=== PATIENT | male | born 1980 | race Caucasian/White ===

== ENCOUNTER 2018-04-06 06:39 | Inpatient (IN) ==
--- NOTE | 2018-03-25 10:31 | Anesthesiology Consultation ---
Date of Service March 25, 2018 Assessment & Plan (1) Encounter for pre-operative examination: Chart Review Chart Review: Acceptable Risk for Surgery and Patient seen in Pre Admission Testing Consults Requested none Teaching & Discussion Pre-Anesthesia Teaching/Discussion Notes: Instructed NPO after midnight before surgery, except medications with 15 cc of water. Medication instructions provided according to the PAT guidelines. History Surgery Operation Date: 04/06/18 14:00 Proposed Procedures p Left Total Hip Arthroplasty - Daniel Melendez Height/Weight Height: 5 ft 1 in Weight: 71.7 kg Allergies Allergy/AdvReac Type Severity Reaction Status Date / Time ANTIBIOTIC Allergy Unknown Rash Uncoded 03/18/18 16:20 Medications Home Medications Medication Instructions Recorded Confirmed Last Taken "Immunity Booster" 1 dose PO DAILY 03/18/18 03/18/18 Unknown Loratidine 1 dose PO UD PRN 03/18/18 03/18/18 Unknown Multivitamin With [place] 3 1 dose PO DAILY 03/18/18 03/18/18 Unknown [place]'s wort 1 dose PO QAM 03/18/18 03/18/18 Unknown Turmeric & Curcumin 1 dose PO DAILY 03/18/18 03/18/18 Unknown acetaminophen [Tylenol Arthritis 1 dose PO UD PRN 03/18/18 03/18/18 Unknown Pain] Past Medical History Medical History Acid reflux DIET CONTROLLED Arthritis Family history of [place] (myocardial infarction) 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 Hip dysplasia History of anesthesia reaction TOOK LONGER TO WAKE UP ([facility] 2017/HIATAL HERNIA) History of pneumonia 2-3 YRS AGO/NO PROBLEMS SINCE Past Surgical History Surgical History History of repair of hiatal hernia Past Anesthesia History No Hx of Anesthesia Complications ("slow to wake" (spent an extra hour in PACU) ) and No Family Hx of Anesthesia Complications History of PONV No Motion Sickness Screening History of Motion Sickness: No Social History Smoking Status: Never smoker Do You Dip or Chew Tobacco: No Hx Alcohol Use: No Hx Substance Use: No substance use type: does not use Exercise / Class Metabolic Activity II 4-5 Yardwork/Stairs/Walk up hill (Active, but increasing difficulty walking due to hip pain. Not currently able to climb stairs due to hip pain. Denies CP or SOB. ) Review of Systems Patient denies chest pain, shortness of breath, dyspnea on exertion, reflux ( diet controlled), cough (only when post nasal drip is acting up), wheezing, palpitations. +joint pain (hips, left knee, low back) Physical Exam Vital Signs BP: 122/79 P: 77 R: 18 T: 98.1 SPO2: 96% on RA ENMT Thyromental Distance: > or= 3.5 Finger Breadths (3.5) Mallampati Class: I Neck normal visual inspection and trachea midline; neck extension not limited Respiratory normal respiratory effort Auscultation: lungs clear to auscultation bilaterally Cardiovascular Rate/Rhythm: regular rate and regular rhythm Heart Sounds: no murmur Vessels: no carotid bruit Neurologic moves all extremities Psychiatric Orientation: alert and oriented x 3 Testing Electrocardiogram Date: 03/25/18 Findings: + NSR @ (72) Chest X-Ray Date: 03/25/18 Findings: + NAD Laboratory Results 03/25/18 11:26 03/25/18 11:26 Blood Type A Positive 03/25/18 11:26 Antibody Screen NEGATIVE 03/25/18 11:26 PT 10.5 Seconds (9.0-12.0) 03/25/18 11:26 INR 1.0 (0.9-1.1) 03/25/18 11:26 APTT 27.7 Seconds (21.0-31.0) 03/25/18 11:26 Urine Color Yellow 03/25/18 Unknown Urine Appearance Clear (Clear) 03/25/18 Unknown Urine pH 5.5 (4.5-7.5) 03/25/18 Unknown Ur Specific [place] 1.022 (1.000-1.030) 03/25/18 Unknown Urine Protein Negative (Negative) 03/25/18 Unknown Urine Glucose (UA) Negative (Negative) 03/25/18 Unknown Urine Ketones Negative (Negative) 03/25/18 Unknown Urine Nitrite Negative (Negative) 03/25/18 Unknown Ur Leukocyte Esterase Negative (Negative) 03/25/18 Unknown 03/25/18 Unknown Urine Culture - Final Urine,Clean Catch No growth - less than 1,000 colonies/mL.
--- NOTE | 2018-03-25 10:35 | PAT Medication Instructions ---
Medication Instructions Date of Service March 25, 2018 Home Medications "Immunity Booster" - doTerra supplements 1 dose PO DAILY Loratidine 1 dose PO NEEDED Multivitamin With [place] 3 1 dose PO DAILY Gaudencio's wort 1 dose PO QAM Turmeric & Curcumin 1 dose PO DAILY acetaminophen [Tylenol Arthritis] 1 dose PO NEEDED STOP taking 2 weeks before surgery "Immunity Booster" 1 dose PO DAILY [place]'s wort 1 dose PO QAM Turmeric & Curcumin 1 dose PO DAILY Multivitamin With [place] 3 1 dose PO DAILY DO NOT take the morning of surgery Loratidine 1 dose PO NEEDED Take morning of surgery With a small sip of water, OTHERWISE NOTHING TO EAT OR DRINK AFTER MIDNIGHT: acetaminophen [Tylenol Arthritis] 1 dose PO NEEDED Take evening before surgery acetaminophen [Tylenol Arthritis] 1 dose PO NEEDED Loratidine 1 dose PO NEEDED Other Notes If you have any questions please call us at [phone] or [phone] or [phone] or [phone]
--- NOTE | 2018-03-25 11:57 | XRay Report ---
XR chest Pre-admission PA/Lat CLINICAL HISTORY: pat COMPARISON STUDY: No previous studies for comparison. FINDINGS: The bones soft tissues and hemidiaphragms are normal. The cardiomediastinal silhouette is n ormal. The lungs are clear. The pulmonary vasculature is normal. IMPRESSION: Negative chest. The above report was generated using voice recognition software. It may contain grammatical, syntax or spelling errors. Electronically signed by: Humberto Fernandes M.D. 03/25/2018 11:55 AM
[2018-03-25 12:28] LABS: Basophils # (auto) 0.03 K/uL (0-0.2); Basophils % (auto) 0.4 %; Eosinophils # (auto) 0.08 K/uL (0-0.5); Hemoglobin 16.1 g/dL (14.0-18.0); Immature Granulocytes # (auto) 0.01 K/uL (0.00-0.02); Immature Granulocytes % (auto) 0.1 %; Lymphocytes # (auto) 3.28 K/uL (1.2-3.4); Lymphocytes % (auto) 41.3 %; Mean Corpuscular Hgb Conc 34.3 g/dL (32-36); Mean Corpuscular Volume 91.1 fL (80-100); Mean Platelet Volume 10.7 fL (7.4-10.4); Monocytes # (auto) 0.64 K/uL (0.11-0.59); Monocytes % (auto) 8.1 %; Neutrophils # (auto) 3.91 K/uL (1.4-6.5); Neutrophils % (auto) 49.1 %; Platelet Count 259 K/uL (130-400); RDW Coefficient of Variation 11.9 % (11.5-14.5); RDW Standard Deviation 39.8 fL (36.4-46.3); Red Blood Count 5.16 M/uL (4.7-6.1); White Blood Count 7.95 K/uL (4.8-10.8)
[2018-03-25 12:39] LABS: Appearance Urine Clear (Clear); Bilirubin Urine Negative (Negative); Color Urine Yellow; Glucose Urine UA Negative (Negative); Ketones Urine Negative (Negative); Leukocyte Esterase Urine Negative (Negative); Nitrite Urine Negative (Negative); Protein Urine Negative (Negative); Specific Gravity Urine 1.022 (1.000-1.030); Urobilinogen Urine Negative (Negative); pH Urine 5.5 (4.5-7.5)
[2018-03-25 12:47] LABS: Partial Thromboplastin Ratio 1.1; Partial Thromboplastin Time 27.7 Seconds (21.0-31.0); Prothrombin Time 10.5 Seconds (9.0-12.0)
[2018-03-25 13:29] LABS: Albumin Level 4.3 gm/dl (3.4-5.0); BUN Creatinine Ratio 19.6 (10-20); Calcium 9.4 mg/dl (8.5-10.1); Creatinine Clr Calc Pharmacy 110.5 ml/min; Est GFR (African American) 133.4; Est GFR (Non-African American) 115.1
[2018-03-25 13:32] LABS: Albumin Globulin Ratio 1.2 (0.9-2); Bilirubin,Total 0.4 mg/dl (0.2-1); Globulin 3.6 gm/dl (2.5-4.0); Total Protein 7.9 gm/dl (6.4-8.2)
--- NOTE | 2018-04-05 11:59 | History & Physical Report ---
Date of Service April 05, 2018 Assessment & Plan (1) Degenerative joint disease of left hip: admit and undergo left TAMIKA. History of Present Illness Chief Complaint: left hip pain Primary Care Provider: Sissy Veras pt with severe hip dysplasia and severe hip pain of left and right hips for years. Pt has tried nsaids and PT with no relief. Allergies Allergy/AdvReac Type Severity Reaction Status Date / Time ANTIBIOTIC Allergy Unknown Rash Uncoded 03/18/18 16:20 Home Medications Home Medications Medication Instructions Recorded Confirmed Type "Immunity Booster" 1 dose PO DAILY 03/18/18 03/18/18 History Loratidine 1 dose PO UD PRN 03/18/18 03/18/18 History Multivitamin With [place] 3 1 dose PO DAILY 03/18/18 03/18/18 History G[place]'s wort 1 dose PO QAM 03/18/18 03/18/18 History Turmeric & Curcumin 1 dose PO DAILY 03/18/18 03/18/18 History acetaminophen [Tylenol Arthritis 1 dose PO UD PRN 03/18/18 03/18/18 History Pain] Past Med/Surg History Medical History Acid reflux DIET CONTROLLED Arthritis Hip dysplasia History of pneumonia 2-3 YRS AGO/NO PROBLEMS SINCE Surgical History History of anesthesia reaction TOOK LONGER TO WAKE UP ([facility] 2017/HIATAL HERNIA) History of repair of hiatal hernia Family History Father FH: myocardial infarction Social History Current Living Situation: Significant Other Other Information That Helps Us Care for You: No Feels Safe at Home: Yes Smoking Status: Never smoker Do You Dip or Chew Tobacco: No Hx Alcohol Use: No Hx Substance Use: No Beliefs That Will Affect Care: None Preferred Language: Macanese Communication Ability: Effective Medical Advisor Required: No Review of Systems All systems reviewed & are unremarkable except as noted in HPI & below Physical Exam 2 Constitutional: WD/WN, vitals as above Eyes: PERRL, conjunctivae normal, anicteric sclerae Neck: trachea midline, no thyromegaly Respiratory: normal respiratory effort, lungs clear to auscultation Cardiovascular: RRR, no murmur, no edema Gastrointestinal (Abdomen): normal bowel sounds, soft, nontender, no hepatosplenomegaly Musculoskeletal: Hip: + limited ROM of hip and + hip ROM with crepitation
[~2018-04-06 06:39] MED LIST: ACETAMINOPHEN 500 MG TAB PO SCH; BUPIVACAINE 0.5 % 5 MG/1 ML PF 10ML VIAL ONE; CEFAZOLIN 1000MG 1,000 MG/7.5 ML SYR IV SCH; CeleBREX 200 MG CAP PO SCH; FAMOTIDINE 20 MG TAB PO SCH; LR 60ML/HR IV SCH; METOCLOPRAMIDE HCL 10 MG TABLET PO SCH; ROPIVACAINE 0.5% HCL/PF 150 MG, BUPIVACAINE 0.5% MPF 30 ML, EPINEPHrine 30MG/30ML (OR U... INFIL SCH; TRANEXAMIC ACID 1,000 MG **IV Intra-op IV SCH; TRANEXAMIC ACID 1,000 MG **IV Pre-op IV SCH; [UNRECOGNIZED DRUG - REMARK] SCH; dexAMETHasone 4 MG TAB PO SCH
[2018-04-06] MEDS: LR 500ML BOLUS, THEN 15ML/HR IV SCH ×3 (07:19→12:13)
[2018-04-06] MEDS ORDERED: fentaNYL citrate 100 MCG/2 ML VIAL ONE (08:02)
[2018-04-06] MEDS ORDERED: PROPOFOL IV EMULSION 10 MG/ML 20 ML VIAL IV ONE ×2 (08:02→10:23)
[2018-04-06] MEDS ORDERED: LIDOCAINE HCL 2% 2 ML VIAL/AMP(20MG/ML) INFIL ONE (08:02)
[2018-04-06] MEDS ORDERED: MIDAZOLAM HCL 1 MG/ML 2ML VIAL ONE (08:02)
[2018-04-06] MEDS ORDERED: ATROPINE SULFATE 0.1 MG/ML 10ML SYR IV PRN (08:15)
[2018-04-06] MEDS ORDERED: PROMETHAZINE HCL 6.25 MG in SODIUM CHLORIDE 0.9% 50 ML IV PRN (08:15)
[2018-04-06] MEDS ORDERED: ePHEDrine sulfate 50 MG/ML AMP IV PRN (08:15)
[2018-04-06] MEDS ORDERED: ONDANSETRON INJ 2 MG/ML 2 ML VIAL IV PRN ×2 (08:15→11:48)
[2018-04-06] MEDS ORDERED: fentaNYL citrate 100 MCG/2 ML VIAL IV PRN (08:15)
--- NOTE | 2018-04-06 08:33 | History & Physical Bridge Note ---
Date of Service April 06, 2018 History & Physical Bridge Note I have examined the patient, reviewed the History & Physical and in the interval since the performance of the History & Physical I have noted the following changes of clinical significance: no changes noted
[2018-04-06] MEDS ORDERED: BACITRACIN INJ 50,000 UNIT VIAL ONE (08:52)
[2018-04-06] MEDS ORDERED: POVIDONE-IODINE OP SOLN 30 ML BTL ONE (08:52)
[2018-04-06] MEDS ORDERED: ORTHO JOINT ANESTHETIC ONE (08:52)
--- NOTE | 2018-04-06 10:45 | Post Operative Brief Note ---
Immediate Post Op Note v1 Date of Surgery April 06, 2018 Pre & Post Diagnosis Operation Date: 04/06/18 09:40 Pre-Op Diagnosis: Left Hip Osteoarthritis Post-Op Diagnosis: Left Hip Osteoarthritis Procedure Operation Date: 04/06/18 09:40 Actual Procedures p Left Total Hip Arthroplasty(Left) - Daniel Melendez Surgeon Daniel Melendez Macadam Raker lizzeth lazo Estimated Blood Loss 30 Findings Consistent with Post-Op Diagnosis Drains Hemovac Drain Complications none Disposition Disposition: Recovery Room
--- NOTE | 2018-04-06 10:48 | Operative Report ---
Post Operative Report Pre & Post Diagnosis Operation Date: 04/06/18 09:40 Pre-Op Diagnosis: Left Hip Osteoarthritis Post-Op Diagnosis: Left Hip Osteoarthritis Procedure Operation Date: 04/06/18 09:40 Actual Procedures p Left Total Hip Arthroplasty(Left) - Daniel Melendez Surgeon Daniel Melendez Museum Curator chuckie lazo Estimated Blood Loss 30 Findings Consistent with Post-Op Diagnosis Specimens none Disposition Disposition: Recovery Room Description of Procedure IMPLANTS USED: Lisa size 56 mm Trident 2 Tritanium acetabular cup, one acetabular screw, a #5 Accolade 2 stem with a 127 degrees neck, 36 mm x-ray elevated liner, 36 mm +0 ceramic head INDICATIONS: is a pleasant male who has unfortunately failed all forms of conservative measures. Therefore, they have has decided to undergo elective surgical intervention. All risks and benefits of the surgery were discussed with the patient and the family in entirety. PROCEDURE: The patient was brought to the operating room and properly identified by myself, anesthesia, and staff. Patient was given a spinal anesthetic and placed on the operating table with the left hip up. The hip was then prepped and draped in the standard orthopedic fashion. We made a standard posterolateral approach over the greater trochanteric area. We then dissected down to subcutaneous tissue until the fascia was identified. We incised the fascia in line with the skin incision. We then split the gluteus xochilt muscles with finger dissection. We then put the Charnley retractor in place. We placed the retractor underneath the gluteus medius to expose the piriformis. The piriformis was then tagged with a tag suture and released from the insertion from the greater trochanteric area with the use of electrocautery. We then performed a T capsulotomy and the femoral head and neck were atraumatically dislocated. We then performed femoral neck osteotomy at the pre- template site. We removed the femoral head and neck without difficulty. We then placed the retractor around the acetabulum. We then began to ream the acetabulum to the appropriate size. We then impacted the cup into place and had a very good fixation within the pelvis. We then put the liner in place as well. Then using multiple size approaches from the Accolade 2 system a size #5 fit very nicely in the proximal femur. I then put trial components in place. WE had very good range of motion, excellent stability, and excellent leg length equality. We removed the trial components and irrigated the wound. We then impacted the components in place and irrigated the wound once more. We then closed the capsule and fascia with a 0 Vicryl suture, the deep dermis with 2-0 Vicryl suture, and finally the skin with a running 3-0 Vicryl subcuticular stitch. A sterile dressing was applied. The patient was taken to the recovery room in stable condition. Due to the complex nature of the procedure, the entire surgery was performed with the operational assistance of Chuckie Lazo PA-C. The training assistant was under direct supervision, was involved in the actual performance of all aspects of the surgical procedure including hemostasis, tissue retraction and incision, instrument management, patient positioning, and wound closure. I attest to the content of the Intraoperative Record and any orders documented therein. Any exceptions are noted below.
--- NOTE | 2018-04-06 11:47 | Anesthesiology Progress Note ---
Date of Service April 06, 2018 Anesthesia Post Procedure Vital Signs Vital Signs: Temp Pulse Pulse Resp BP Pulse Ox 04/06/18 11:35 36.4 C L 66 20 120/68 97 04/06/18 11:25 75 18 106/80 99 04/06/18 11:15 75 20 113/77 98 04/06/18 11:05 80 22 105/72 98 04/06/18 10:57 37.1 C 74 20 104/61 98 04/06/18 07:47 36.7 C 78 20 160/94 H 98 Pain Intensity Left Hip: Pain Intensity: 1 Notes Mental Status: alert / awake / arousable Patient Amnestic to Procedure: Yes Nausea / Vomiting: adequately controlled Pain: adequately controlled Airway Patency, RR, SpO2: stable & adequate BP & HR: stable & adequate Hydration State: stable & adequate Neuraxial Anesthesia: was administered and sensory block is resolving Anesthetic Complications: no major complications apparent
[2018-04-06] MEDS ORDERED: OXYCODONE HCL IR 5 MG TAB (IMMEDIATE RELEASE) PO PRN (11:48)
[2018-04-06] MEDS ORDERED: METOCLOPRAMIDE HCL INJ 5 MG/ML 2 ML VIAL IV PRN (11:48)
[2018-04-06] MEDS ORDERED: MAGNESIUM HYDROXIDE SUSP 30 ML UDC PO PRN (11:48)
[2018-04-06] MEDS ORDERED: BISACODYL 10 MG SUPP PR PRN (11:48)
[2018-04-06] MEDS ORDERED: NALOXONE HCL 0.4 MG/1 ML VIAL/CARP IV PRN (11:48)
[2018-04-06] MEDS ORDERED: ALUMINUM/MAGNESIUM SUSP 30 ML UDC PO PRN (11:48)
[2018-04-06] MEDS: SODIUM CHLORIDE 0.9% 1000ML 1,000 ML IV SCH ×2 (12:44→22:26)
[2018-04-06] MEDS: ACETAMINOPHEN 500 MG TAB PO SCH ×2 (13:38→22:26)
[2018-04-06] MEDS ORDERED: TRANEXAMIC ACID 1,000 MG in 0.9 % SODIUM CHLORIDE 100 ML IV SCH (17:00)
[2018-04-06] MEDS: CEFAZOLIN 2000MG 2,000 MG/15 ML SYR IV SCH (17:30)
[2018-04-06] MEDS: TRAMADOL HCL 50 MG TABLET PO PRN (20:45)
[2018-04-06] MEDS: DOCUSATE SODIUM 100 MG CAP PO SCH (20:47)
[2018-04-06] MEDS ORDERED: SENNA 8.6 MG TAB PO SCH (21:00)
[2018-04-07] MEDS: CEFAZOLIN 2000MG 2,000 MG/15 ML SYR IV SCH (02:15)
[2018-04-07] MEDS: ACETAMINOPHEN 500 MG TAB PO SCH ×2 (05:48→13:50)
[2018-04-07 06:55] LABS: Eosinophils # (auto) 0.01 K/uL (0-0.5); Eosinophils % (auto) 0.1 %; Hematocrit (blood only) 36.4 % (42-52); Hemoglobin 12.6 g/dL (14.0-18.0); Immature Granulocytes # (auto) 0.06 K/uL (0.00-0.02); Immature Granulocytes % (auto) 0.4 %; Lymphocytes # (auto) 2.38 K/uL (1.2-3.4); Lymphocytes % (auto) 16.2 %; Mean Corpuscular Hgb Conc 34.6 g/dL (32-36); Mean Corpuscular Volume 90.3 fL (80-100); Mean Platelet Volume 10.1 fL (7.4-10.4); Monocytes # (auto) 1.23 K/uL (0.11-0.59); Monocytes % (auto) 8.4 %; Neutrophils # (auto) 11.03 K/uL (1.4-6.5); Neutrophils % (auto) 74.9 %; Platelet Count 229 K/uL (130-400); RDW Coefficient of Variation 12.1 % (11.5-14.5); RDW Standard Deviation 39.7 fL (36.4-46.3); Red Blood Count 4.03 M/uL (4.7-6.1); White Blood Count 14.71 K/uL (4.8-10.8)
[2018-04-07 07:24] LABS: BUN Creatinine Ratio 23.1 (10-20); Calcium 8.1 mg/dl (8.5-10.1); Creatinine Clr Calc Pharmacy 130.9 ml/min; Est GFR (African American) 142.9; Est GFR (Non-African American) 123.3; Potassium 3.9 mmol/L (3.5-5.1)
[2018-04-07] MEDS ORDERED: dexAMETHasone 10 MG in SYRINGE 0 ML IV SCH (08:00)
--- NOTE | 2018-04-07 08:04 | Anesthesiology Progress Note ---
Date of Service April 07, 2018 Anesthesia Post Procedure Vital Signs Vital Signs: Temp Pulse Pulse Pulse Resp BP Pulse Ox 04/07/18 07:29 36.7 C 71 16 105/58 L 96 04/07/18 03:25 36.6 C 73 18 109/68 98 04/06/18 20:06 36.7 C 88 17 123/73 96 04/06/18 15:29 36.8 C 99 H 18 122/71 96 04/06/18 13:58 88 18 115/72 96 04/06/18 13:17 60 16 129/83 98 04/06/18 12:41 37.0 C 82 16 118/72 95 04/06/18 12:24 69 16 118/71 95 04/06/18 11:50 36.4 C L 67 16 122/72 98 04/06/18 11:35 36.4 C L 66 20 120/68 97 04/06/18 11:25 75 18 106/80 99 04/06/18 11:15 75 20 113/77 98 04/06/18 11:05 80 22 105/72 98 04/06/18 10:57 37.1 C 74 20 104/61 98 Pain Intensity Left Hip: Pain Intensity: 1 Notes Mental Status: alert / awake / arousable and participated in evaluation Nausea / Vomiting: adequately controlled Pain: adequately controlled Airway Patency, RR, SpO2: stable & adequate BP & HR: stable & adequate Hydration State: stable & adequate Neuraxial Anesthesia: sensory block resolved Anesthetic Complications: Pt Satisfied with anesthetic care
[2018-04-07] MEDS: DOCUSATE SODIUM 100 MG CAP PO SCH (08:28)
[2018-04-07] MEDS ORDERED: ASPIRIN 81 MG ECTAB PO SCH (09:00)
--- NOTE | 2018-04-07 10:49 | Orthopedic Progress Note ---
Addendum entered and electronically signed by Chuckie Oseguera PA-C 04/07/18 15:10: Addendum (Blank) Addendum April 07, 2018 14:56 I was called to see the patient is around 130 this afternoon. Nursing staff came and got me while I was doing rounds. Patient was standing up in the bathroom stating that when he walked forwards or backwards that he felt a small click and around the hip. He demonstrated for me and at one point I thought I felt a small click when he was backing out of the bathroom. He had some increased pain around the hip itself mainly laterally and the superior portion of the buttock. The patient was able to ambulate easily back to the bed and laid down. Examination of the dressing and hip appears benign. He had increased pain on palpation just superior to the dressing and more medial towards the buttock. He denies any sharp pain radiating down to the foot. He states that he had some discomfort radiating down to the mid thigh. He did not have increased pain with weightbearing. I took him through gentle range of motion and could not feel any clicking and he could not feel any clicking as well. He did not seem to be in any increased pain with range of motion. He had good plantar flexion and dorsiflexion of both feet. He mentioned that his left great toe felt somewhat tingly. He was given tramadol for pain and an ice pack was placed over the hip incision and buttock. I left for a short while and was asked to see the patient again for question of increased numbness in the left foot. On examination the patient was lying in bed and appeared comfortable. His socks were removed and I rolled up his sweatpants to the knees. He had no discernible decrease in sensation in either leg below the knees. Whenever I did light palpation of his feet, he stated he he felt that the top of his foot felt more numb and tingly. More over the right great toe and medial aspect of the foot than the lateral. He continues to have equal strength bilaterally with dorsiflexion and plantar flexion. An AP and lateral x -ray was ordered of the left hip and showed no fractures or dislocations. Patient was initially going to be discharged however at this time we will hold discharge. Dr. Easley will be rounding this afternoon and I will have him examined the patient at that point in time. At the end of my examination the patient stated that he was having less pain in the buttock and leg but continued to have the decreased sensation. I discussed the case verbally with . A small clicking is not unheard of in total hip arthroplasty. This could also be a small piece of tissue in and around the hip causing the discomfort. We will have Dr. Easley the patient later today for definitive decision for discharge versus continuing his stay. Original Note: Date of Service April 07, 2018 Assessment & Plan (1) Degenerative joint disease of left hip: PT/OT DVT prophylaxis with SCD's/TAVARES's/ASA Pain management Planning for services Patient seen and examined, agree with above assessment and plan. XR reviewed, well aligned well fixed hip prosthesis without fracture/dislocation. Patient comfortable at rest. Exam painless ROM of the hip, decreased strength noted with hip flexion, NVSI, only complaints at this time include a sensation of painless popping of the posterior hip with pivoting. Offered reassurance, not unreasonable in the presence of recent surgery soft tissue edema. Patient to be DC'd home with services. Subjective POD 1 s/p Left TAMIKA Sitting up in chair this AM. Pain controlled. Did well with his PT. No complaints. Comfortable. Physical Exam 2 Vital Signs (Past 24 Hours): Last Vital Signs Temp 36.7 C 04/07/18 07:29 Pulse 71 04/07/18 07:29 Resp 16 04/07/18 07:29 BP 105/58 L 04/07/18 07:29 Pulse Ox 96 04/07/18 07:29 Physical Exam: Dressing C/D/I. Calves soft, NT. NV intact. Hip located. Toes mobile. HV with minimal drainage.
[2018-04-07] MEDS: TRAMADOL HCL 50 MG TABLET PO PRN (14:04)
--- NOTE | 2018-04-07 14:21 | XRay Report ---
XR hip LT min 2V CLINICAL HISTORY: Postoperative study COMPARISON: None. DISCUSSION: There are postsurgical changes of a total left hip arthroplasty. The acetabular and femor al components appear well seated. There is air within the soft tissues. There are overlying skin stap les. There is no dislocation. IMPRESSION: Postsurgical changes of a total left hip arthroplasty. Electronically signed by: Nikolas Otero M.D. 04/07/2018 2:20 PM
--- NOTE | 2018-04-09 12:44 | Discharge Summary ---
DISCHARGE DIAGNOSIS: Degenerative joint disease, left hip. SECONDARY DIAGNOSES: Gastroesophageal reflux disease; hip dysplasia, congenital; history of pneumonia. CONSULTS: None. COMPLICATIONS: None. PROCEDURES: Left total hip arthroplasty performed by Dr. Melendez on 04/06/2018. BRIEF HISTORY: As dictated in history and physical. HOSPITAL SUMMARY: The patient was admitted on the above-noted date and had the above-noted surgery performed which he tolerated well. On his first postoperative day, he was sitting up in the chair that morning. Pain was controlled. He did well with his PT and had no complaints, he was comfortable. Vital signs were stable. He was afebrile. Dressings clean, dry and intact. Calves were soft and nontender. Neurovascularly intact. Hip was located. Toes were mobile. Hemovac had minimal drainage. Plans were initially for the patient to be discharged to home later that morning; however, I was called to see the patient at approximately 1:30 that afternoon and the nursing asked me to come evaluate the patient. He was standing up in the bathroom and stating when he walked forwards and backwards, that he felt a small click around the hip. He demonstrated that for me at one point, which I felt a very small click in the hip whenever he was going into extension with his hip backing out of the bathroom. He has some increased pain around the hip itself laterally and over the superior portion of his buttock above the incision. He was able to ambulate easily back to the bed and got back into bed. Examination of the dressing of the hip appeared benign. He had the above-noted increased pain on palpation just superior to the dressing and more medial towards the buttock. He denied any sharp pain radiating down into the foot. He stated that he had some discomfort radiating down to the mid thigh. He did not have any increased pain with weightbearing. General range of motion was improved. No clicking or any increased pain. He had good plantar flexion and dorsiflexion of both feet. He mentioned he had some decreased sensation of the left great toe and over the top of the foot. He did have good strength with plantar flexion and dorsiflexion as noted. On examination of both of his lower extremities, he again felt that he had some light decreased sensation over the top of his foot and it was somewhat tingly, more over the great toe and the medial aspect of the foot than the lateral. He continued to have equal strength bilaterally with dorsiflexion and plantarflexion. AP and lateral x-rays were ordered of the left hip and showed no fractures or dislocations. The patient was going to be discharged, however, discharge was held and I discussed the case with Dr. Melendez also Dr. Easley who was at the facility. Plans were to continue his ambulation as able and he will be evaluated by Dr. Easley later in the day for possible discharge versus staying overnight. After rechecking the patient several times, he stated that the pain that he was having initially had pretty much gotten better and was no longer an overt concern. Dr. Easley saw the patient later that afternoon and reviewed the x-rays. He had painless range of motion of the hip. He had some decreased strength noted with hip flexion. Neurovascular was intact and other complaints at that time included a sensation of painless popping in the posterior hip with pivoting. Patient was offered reassurance and felt that it was not unreasonable in the presence of recent surgery and soft tissue edema and he was thusly discharged to home. For further review, please see chart. LABORATORY AND X-RAY DATA: As per chart. DISCHARGE INSTRUCTIONS: The patient was discharged to home in satisfactory condition on 04/07/2018. DIET: Regular. ACTIVITY: Weightbearing as tolerated, left lower extremity, with walker. Follow TAMIKA instruction sheets and special care instructions as noted per Dr. Melendez's printed total hip replacement instruction sheets and follow up with him in 2 weeks. The patient is to call for appointment. DISCHARGE MEDICATIONS: Acetaminophen 1000 mg p.o. q. 8 hours, aspirin 81 mg p.o. b.i.d., cefadroxil 500 mg p.o. b.i.d. Resume home meds as listed and stop taking Tylenol Arthritis pain medication.
== END 2018-04-07 18:10 | disposition home health service (06) | DRG 470 ==
LOC: ASU 06:39 → 3E 11:48